=== PATIENT | male | born 2000 | race African-American/Black ===

== ENCOUNTER 2023-01-08 16:42 | Observation (INO) | payer MEDICAID, OTHER ==
[~2023-01-08] VITALS: Ht 190.5 cm; Wt 113.6 kg
[2023-01-08 17:30] VITALS: BP 157/76
[2023-01-08] MEDS ORDERED: MELATONIN 3 MG TABLET PO PRN (17:30)
[2023-01-08] MEDS ORDERED: CALCIUM CARBONATE 500 MG CHEW TABLET PO PRN (17:30)
[2023-01-08] MEDS ORDERED: diphenhydrAMINE 25 MG TABLET PO PRN (17:30)
[2023-01-08] MEDS ORDERED: oxyCODONE IMMEDIATE RELEASE 5 MG TABLET PO PRN (17:30)
[2023-01-08] MEDS ORDERED: polyethylene glycoL POWDER 17 GM (MIRALAX) PACK PO PRN (17:30)
[2023-01-08] MEDS ORDERED: MILK OF MAGNESIA 400 MG/5 ML 30 ML UDC PO PRN (17:30)
[2023-01-08] MEDS ORDERED: HYDROmorphone INJECTION 2 MG/ML VIAL IV PRN (17:30)
[2023-01-08] MEDS ORDERED: diphenhydrAMINE INJ 50 MG/ML VIAL IVP PRN (17:30)
[2023-01-08] MEDS ORDERED: LACTULOSE SYRUP 10GM/15ML 30ML UDC PO PRN (17:30)
[2023-01-08] MEDS ORDERED: BISACODYL 10 MG SUPPOSITORY PR PRN (17:30)
[2023-01-08] MEDS ORDERED: NS IV 1000 ML 1,000 ML IV SCH (17:30)
[2023-01-08] MEDS ORDERED: ONDANSETRON 4 MG/2 ML (SDV) Z0FRAN IV PRN (17:30)
[2023-01-08] MEDS ORDERED: ONDANSETRON 4 MG (ZOFRAN) ORAL DISSOLVE TAB PO PRN (17:30)
[2023-01-08] MEDS ORDERED: ANTACID SUSPENSION 30 ML UDC PO PRN (17:30)
[2023-01-08] MEDS ORDERED: ACETAMINOPHEN 325 MG TABLET PO PRN (17:30)
[2023-01-08 17:55] LABS: BASOPHILS % (AUTO) 1 % (0-10); EOSINOPHILS # (AUTO) 0.1 10^3/uL (0.0-0.3); EOSINOPHILS % (AUTO) 1 % (0-10); HEMATOCRIT 42 % (40-54); HEMOGLOBIN 14.3 g/dL (13.3-17.7); LYMPHOCYTES # (AUTO) 1.7 10^3/uL (1.0-4.0); LYMPHOCYTES % (AUTO) 31 % (12-44); MEAN CORPUSCULAR HEMOGLOBIN 31 pg (25-34); MEAN CORPUSCULAR HGB CONC 34 g/dL (32-36); MEAN CORPUSCULAR VOLUME 91 fL (80-99); MEAN PLATELET VOLUME 8.9 fL (9.0-12.2); MONOCYTES # (AUTO) 0.5 10^3/uL (0.0-1.0); MONOCYTES % (AUTO) 8 % (0-12); NEUTROPHILS # (AUTO) 3.3 10^3/uL (1.8-7.8); NEUTROPHILS % (AUTO) 59 % (42-75); PLATELET COUNT 198 10^3/uL (130-400); WHITE BLOOD COUNT 5.6 10^3/uL (4.3-11.0)
--- NOTE | 2023-01-08 18:04 | History & Physical ---
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 Apparently he has been practicing with the football team and suffered muscle cramps nausea and vomiting and has been managed the last 2 days with periodic IV fluid at the [facility]. Currently he is feeling much better but his CPK had been rising the last 2 days. Due to high risk for acute kidney injury and chronic kidney disease we will continue with aggressive IV fluid resuscitation and monitor CPK and kidney function. Source: patient, RN/MD, old records Exam Limitations: no limitations Date Seen 01/08/23 Time Seen by a Provider: 19:00 Attending Physician Ctr,[facility] PCP Admitting Physician: Rylee Cotton DO Attending Physician: Rylee Cotton DO Referring Physician Date of Admission Jan 08, 2023 at 17:12 Home Medications & Allergies Home Medications Reviewed patient Home Medication Reconciliation performed by pharmacy medication reconciliations elevator service technician and/or nursing. Patients Allergies have been reviewed. Allergies Allergies Coded Allergies No Known Drug Allergies (Unverified01/08/23) Past Qxinaah-Ixhvxs-Xqptia Hx Past Med/Social Hx: Reviewed Nursing Past Med/Soc Hx, Reviewed and Corrections made Patient Social History Marrital Status: single Employed/Student: student, full-time Alcohol Use: Denies Use Smoking Status: Former Smoker Recent Foreign Travel: No Contact w/other who traveled: No Review of Systems Constitutional: see HPI, malaise, weakness Musculoskeletal: back pain, muscle pain, muscle stiffness, muscle cramps, muscle twitching, muscle weakness Physical Exam Physical Exam Vital Signs Vital Signs - First Documented 01/08/23 01/08/23 01/08/23 17:30 19:35 19:43 Temp 37.7 Pulse 70 Resp 19 B/P (MAP) 157/76 (103) Pulse Ox 97 O2 Delivery Room Air O2 Flow Rate 0.00 FiO2 21 Capillary Refill : Height, Weight, BMI Height: '" Weight: lbs. oz. kg; 31.30 BMI Method: General Appearance: No Apparent Distress, WD/WN Eyes: Bilateral Eye Normal Inspection, Bilateral Eye PERRL HEENT: PERRL/EOMI, TMs Normal, Normal ENT Inspection, Pharynx Normal Neck: Full Range of Motion, Normal Inspection, Non Tender, Supple, Carotid Bruit Respiratory: Chest Non Tender, Lungs Clear, Normal Breath Sounds, No Accessory Muscle Use, No Respiratory Distress Cardiovascular: Regular Rate, Rhythm, No Edema, No Gallop, No JVD, No Murmur, Normal Peripheral Pulses Gastrointestinal: Normal Bowel Sounds, No Organomegaly, No Pulsatile Mass, Non Tender, Soft Back: Normal Inspection, No CVA Tenderness, No Vertebral Tenderness Extremity: Normal Capillary Refill, Normal Inspection, Normal Range of Motion, Non Tender, No Calf Tenderness, No Pedal Edema Neurologic/Psychiatric: Alert, Oriented x3, No Motor/Sensory Deficits, Normal Mood/Affect Skin: Normal Color, Warm/Dry Lymphatic: No Adenopathy Results Results/Procedures Labs Laboratory Tests 01/08/23 17:45 Patient resulted labs reviewed. Assessment/Plan Admission Diagnosis Assessment: Acute rhabdomyolysis Acute kidney injury Heat exposure Plan: Aggressive IV fluid Monitor CPK Monitor kidney function Admission Status: Observation RYLEE COTTON DO Jan 08, 2023 18:04
[2023-01-08 18:09] LABS: ALBUMIN 4.3 GM/DL (3.2-4.5); POTASSIUM 3.9 MMOL/L (3.6-5.0)
[2023-01-08 18:11] LABS: CALCIUM 8.9 MG/DL (8.5-10.1)
[2023-01-08 18:12] LABS: TOTAL PROTEIN 6.9 GM/DL (6.4-8.2)
[2023-01-08 18:14] LABS: BILIRUBIN,TOTAL 0.5 MG/DL (0.1-1.0)
[2023-01-08 18:16] LABS: CREATININE SERUM 1.29 MG/DL (0.60-1.30)
[2023-01-08] MEDS: NS IV 1000 ML 1,000 ML IV SCH (18:29)
[2023-01-08 18:36] LABS: BACTERIA,URINE TRACE /HPF; BILIRUBIN,URINE NEGATIVE (NEGATIVE); CLARITY,URINE CLEAR; COLOR,URINE YELLOW; GLUCOSE, URINE (UA) NEGATIVE (NEGATIVE); KETONES,URINE NEGATIVE (NEGATIVE); LEUKOCYTE ESTERASE ,URINE NEGATIVE (NEGATIVE); NITRITE,URINE NEGATIVE (NEGATIVE); PROTEIN,URINE NEGATIVE (NEGATIVE)
[2023-01-08 19:21] VITALS: BP 141/70
[2023-01-08] MEDS: DOCUSATE SODIUM 100 MG CAPSULE PO SCH (19:21)
[2023-01-08] MEDS: SENNOSIDES 8.6 MG (SENOKOT) TAB PO SCH (19:22)
[2023-01-08 19:35] VITALS: BP 157/76
[2023-01-09] MEDS: NS IV 1000 ML 1,000 ML IV SCH ×4 (00:25→17:26)
[2023-01-09 00:26] VITALS: BP 139/73
[2023-01-09 03:56] VITALS: BP 105/79
[2023-01-09 05:56] LABS: BASOPHILS % (AUTO) 1 % (0-10); EOSINOPHILS # (AUTO) 0.1 10^3/uL (0.0-0.3); EOSINOPHILS % (AUTO) 2 % (0-10); HEMATOCRIT 45 % (40-54); HEMOGLOBIN 14.8 g/dL (13.3-17.7); LYMPHOCYTES # (AUTO) 2.1 10^3/uL (1.0-4.0); LYMPHOCYTES % (AUTO) 43 % (12-44); MEAN CORPUSCULAR HEMOGLOBIN 31 pg (25-34); MEAN CORPUSCULAR HGB CONC 33 g/dL (32-36); MEAN CORPUSCULAR VOLUME 92 fL (80-99); MEAN PLATELET VOLUME 9.4 fL (9.0-12.2); MONOCYTES # (AUTO) 0.4 10^3/uL (0.0-1.0); MONOCYTES % (AUTO) 8 % (0-12); NEUTROPHILS # (AUTO) 2.3 10^3/uL (1.8-7.8); NEUTROPHILS % (AUTO) 47 % (42-75); PLATELET COUNT 198 10^3/uL (130-400); WHITE BLOOD COUNT 4.9 10^3/uL (4.3-11.0)
[2023-01-09 06:12] LABS: POTASSIUM 4.1 MMOL/L (3.6-5.0)
[2023-01-09 06:13] LABS: CALCIUM 8.7 MG/DL (8.5-10.1)
[2023-01-09 06:14] LABS: TOTAL PROTEIN 6.5 GM/DL (6.4-8.2)
[2023-01-09 06:16] LABS: BILIRUBIN,TOTAL 0.9 MG/DL (0.1-1.0)
[2023-01-09 06:18] LABS: CREATININE SERUM 1.27 MG/DL (0.60-1.30)
[2023-01-09 07:26] VITALS: BP 142/89
[2023-01-09] MEDS: SENNOSIDES 8.6 MG (SENOKOT) TAB PO SCH ×2 (09:19→19:50)
[2023-01-09] MEDS: DOCUSATE SODIUM 100 MG CAPSULE PO SCH ×2 (09:19→19:50)
[2023-01-09] MEDS ORDERED: IBUP-2473 PO (10:15)
[2023-01-09 11:11] VITALS: BP 148/80
--- NOTE | 2023-01-09 11:24 | Progress Note ---
Subjective Date Seen by a Provider: Jan 09, 2023 Time Seen by a Provider: 11:00 Subjective/Events-last exam Patient much improved Minimal pain CPK down from 18-15k IV fluid continues Review of Systems General: Fatigue, Malaise Focused Exam Lactate Level 01/08/23 17:45: Lactic Acid Level 1.20 Objective Exam Last Set of Vital Signs Vital Signs Date Time Temp Pulse Resp B/P (MAP) Pulse Ox O2 Delivery O2 Flow Rate FiO2 01/09/23 11:11 37.1 56 16 148/80 (102) 99 Room Air 01/09/23 07:42 0.00 01/08/23 19:35 21 Capillary Refill : I&O Intake and Output 01/09/23 00:00 Intake Total 400 ml Balance 400 ml Intake Oral 400 ml # Voids 2 Daily Weight Change No General: Alert, Oriented X3, Cooperative, No Acute Distress Lungs: Clear to Auscultation, Normal Air Movement Heart: Regular Rate, Normal S1, Normal S2, No Murmurs Psych/Mental Status: Mental Status NL, Mood NL Results Lab Laboratory Tests 01/08/23 17:45: White Blood Count 5.6, Red Blood Count 4.62, Hemoglobin 14.3, Hematocrit 42, Mean Corpuscular Volume 91, Mean Corpuscular Hemoglobin 31, Mean Corpuscular Hemoglobin Concent 34, Red Cell Distribution Width 11.8, Platelet Count 198, Mean Platelet Volume 8.9L, Immature Granulocyte % (Auto) 0, Neutrophils (%) (Auto) 59, Lymphocytes (%) (Auto) 31, Monocytes (%) (Auto) 8, Eosinophils (%) (Auto) 1, Basophils (%) (Auto) 1, Neutrophils # (Auto) 3.3, Lymphocytes # (Auto) 1.7, Monocytes # (Auto) 0.5, Eosinophils # (Auto) 0.1, Basophils # (Auto) 0.0, Immature Granulocyte # (Auto) 0.0, Sodium Level 138, Potassium Level 3.9, Chloride Level 105, Carbon Dioxide Level 22, Anion Gap 11, Blood Urea Nitrogen 11, Creatinine 1.29, Estimat Glomerular Filtration Rate 81, BUN/Creatinine Ratio 9, Glucose Level 92, Lactic Acid Level 1.20, Calcium Level 8.9, Corrected Calcium 8.7, Total Bilirubin 0.5, Aspartate Amino Transf (AST/SGOT) 333H, Alanine Aminotransferase (ALT/SGPT) 86H, Alkaline Phosphatase 59, Total Creatine Kinase 14396D, Total Protein 6.9, Albumin 4.3 01/08/23 18:10: Urine Color YELLOW, Urine Clarity CLEAR, Urine pH 6.0, Urine Specific [place] 1.010L, Urine Protein NEGATIVE, Urine Glucose (UA) NEGATIVE, Urine Ketones NEGATIVE, Urine Nitrite NEGATIVE, Urine Bilirubin NEGATIVE, Urine Urobilinogen 0.2, Urine Leukocyte Esterase NEGATIVE, Urine RBC (Auto) TRACEH, Urine RBC NONE, Urine WBC NONE, Urine Squamous Epithelial Cells NONE, Urine Crystals NONE, Urine Bacteria TRACE, Urine Casts NONE, Urine Mucus NEGATIVE, Urine Culture Indicated NO 01/09/23 05:09: White Blood Count 4.9, Red Blood Count 4.86, Hemoglobin 14.8, Hematocrit 45, Mean Corpuscular Volume 92, Mean Corpuscular Hemoglobin 31, Mean Corpuscular Hemoglobin Concent 33, Red Cell Distribution Width 11.6, Platelet Count 198, Mean Platelet Volume 9.4, Immature Granulocyte % (Auto) 0, Neutrophils (%) (Auto) 47, Lymphocytes (%) (Auto) 43, Monocytes (%) (Auto) 8, Eosinophils (%) (Auto) 2, Basophils (%) (Auto) 1, Neutrophils # (Auto) 2.3, Lymphocytes # (Auto) 2.1, Monocytes # (Auto) 0.4, Eosinophils # (Auto) 0.1, Basophils # (Auto) 0.0, Immature Granulocyte # (Auto) 0.0, Sodium Level 141, Potassium Level 4.1, Chloride Level 108H, Carbon Dioxide Level 24, Anion Gap 9, Blood Urea Nitrogen 9, Creatinine 1.27, Estimat Glomerular Filtration Rate 82, BUN/Creatinine Ratio 7, Glucose Level 86, Calcium Level 8.7, Corrected Calcium 8.7, Total Bilirubin 0.9, Aspartate Amino Transf (AST/SGOT) 253H, Alanine Aminotransferase (ALT/SGPT) 80H, Alkaline Phosphatase 54, Total Creatine Kinase 92817Y, Total Protein 6.5, Albumin 4.0 Assessment/Plan Assessment/Plan Assess & Plan/Chief Complaint Assessment: Acute rhabdomyolysis Acute kidney injury Heat exposure Plan: Aggressive IV fluid Monitor CPK Monitor kidney function ALEX ACUNA DO Jan 09, 2023 11:24
[2023-01-09 16:47] VITALS: BP 150/88
[2023-01-09 20:45] VITALS: BP 151/86
[2023-01-10] MEDS: NS IV 1000 ML 1,000 ML IV SCH ×3 (00:03→08:55)
[2023-01-10 00:04] VITALS: BP 133/93
[2023-01-10 03:11] VITALS: BP 144/75
[2023-01-10 05:51] LABS: BASOPHILS % (AUTO) 1 % (0-10); EOSINOPHILS # (AUTO) 0.1 10^3/uL (0.0-0.3); EOSINOPHILS % (AUTO) 1 % (0-10); HEMATOCRIT 44 % (40-54); LYMPHOCYTES # (AUTO) 1.8 10^3/uL (1.0-4.0); LYMPHOCYTES % (AUTO) 34 % (12-44); MEAN CORPUSCULAR HEMOGLOBIN 31 pg (25-34); MEAN CORPUSCULAR HGB CONC 34 g/dL (32-36); MEAN CORPUSCULAR VOLUME 90 fL (80-99); MONOCYTES # (AUTO) 0.4 10^3/uL (0.0-1.0); MONOCYTES % (AUTO) 8 % (0-12); NEUTROPHILS % (AUTO) 56 % (42-75); PLATELET COUNT 200 10^3/uL (130-400); WHITE BLOOD COUNT 5.3 10^3/uL (4.3-11.0)
[2023-01-10 06:19] LABS: ALBUMIN 4.2 GM/DL (3.2-4.5); BILIRUBIN,TOTAL 0.9 MG/DL (0.1-1.0); CALCIUM 9.2 MG/DL (8.5-10.1); CREATININE SERUM 1.22 MG/DL (0.60-1.30); POTASSIUM 4.2 MMOL/L (3.6-5.0); TOTAL PROTEIN 6.7 GM/DL (6.4-8.2)
--- NOTE | 2023-01-10 06:32 | Progress Note ---
Subjective Date Seen by a Provider: Jan 10, 2023 Time Seen by a Provider: 11:00 Focused Exam Lactate Level 01/08/23 17:45: Lactic Acid Level 1.20 Objective Exam Last Set of Vital Signs Vital Signs Date Time Temp Pulse Resp B/P (MAP) Pulse Ox O2 Delivery O2 Flow Rate FiO2 01/10/23 03:11 57 16 144/75 (98) 97 01/10/23 00:04 Room Air 01/09/23 20:45 37.0 01/09/23 19:45 0.00 01/08/23 19:35 21 Capillary Refill : I&O Intake and Output 01/10/23 00:00 Intake Total 3220 ml Balance 3220 ml Intake Oral 2220 ml IV Total 1000 ml # Voids 20 # Bowel Movements 3 Results Lab Laboratory Tests 01/10/23 05:34: White Blood Count 5.3, Red Blood Count 4.92, Hemoglobin 15.0, Hematocrit 44, Mean Corpuscular Volume 90, Mean Corpuscular Hemoglobin 31, Mean Corpuscular Hemoglobin Concent 34, Red Cell Distribution Width 11.6, Platelet Count 200, Mean Platelet Volume 9.0, Immature Granulocyte % (Auto) 0, Neutrophils (%) (Auto) 56, Lymphocytes (%) (Auto) 34, Monocytes (%) (Auto) 8, Eosinophils (%) (Auto) 1, Basophils (%) (Auto) 1, Neutrophils # (Auto) 3.0, Lymphocytes # (Auto) 1.8, Monocytes # (Auto) 0.4, Eosinophils # (Auto) 0.1, Basophils # (Auto) 0.0, Immature Granulocyte # (Auto) 0.0, Sodium Level 142, Potassium Level 4.2, Chloride Level 107, Carbon Dioxide Level 25, Anion Gap 10, Blood Urea Nitrogen 8, Creatinine 1.22, Estimat Glomerular Filtration Rate 87, BUN/Creatinine Ratio 7, Glucose Level 91, Calcium Level 9.2, Corrected Calcium 9.0, Total Bilirubin 0.9, Aspartate Amino Transf (AST/SGOT) 162H, Alanine Aminotransferase (ALT/SGPT) 72H, Alkaline Phosphatase 59, Total Protein 6.7, Albumin 4.2 Assessment/Plan Assessment/Plan Assess & Plan/Chief Complaint Assessment: Acute rhabdomyolysis Acute kidney injury Heat exposure Plan: Aggressive IV fluid Monitor CPK Monitor kidney function ALEX ACUNA DO Jan 10, 2023 06:32
[2023-01-10 07:16] VITALS: BP 158/89
[2023-01-10] MEDS: SENNOSIDES 8.6 MG (SENOKOT) TAB PO SCH (08:54)
[2023-01-10] MEDS: DOCUSATE SODIUM 100 MG CAPSULE PO SCH (08:54)
--- NOTE | 2023-01-10 11:44 | Discharge Summary ---
Diagnosis/Chief Complaint Date of Admission Jan 08, 2023 at 17:12 Date of Discharge Discharge Date: Jan 10, 2023 Discharge Diagnosis Acute rhabdomyolysis Acute kidney injury Heat exposure Discharge Summary Discharge Physical Examination Allergies: Coded Allergies: No Known Drug Allergies (Unverified , 01/08/23) Vitals & I&Os Vital Signs Date Time Temp Pulse Resp B/P (MAP) Pulse Ox O2 Delivery O2 Flow Rate FiO2 01/10/23 12:44 37.0 52 18 147/84 100 Room Air 0.00 01/08/23 19:35 21 General Appearance: Alert, Oriented X3, Cooperative Respiratory: Clear to Auscultation Cardiovascular: Regular Rate Psych/Mental Status: Mental Status NL Hospital Course Was the Problem List Reviewed?: Yes Short hospital course after he was admitted from [facility] after failing 2 days of IV fluid given at the clinic for acute rhabdomyolysis with acute kidney injury and heat exposure. Overall he did well CPK was 18,000 then 15,000 and then today was 9000 with no evidence of any kidney injury he was going to increase his fluid intake and he was deemed stable for DC with close f/u Thursday at [facility] clinic to decide when he could return to football. Labs (last 24 hrs) Laboratory Tests 01/08/23 17:45: White Blood Count 5.6, Red Blood Count 4.62, Hemoglobin 14.3, Hematocrit 42, Mean Corpuscular Volume 91, Mean Corpuscular Hemoglobin 31, Mean Corpuscular Hemoglobin Concent 34, Red Cell Distribution Width 11.8, Platelet Count 198, Mean Platelet Volume 8.9L, Immature Granulocyte % (Auto) 0, Neutrophils (%) (Auto) 59, Lymphocytes (%) (Auto) 31, Monocytes (%) (Auto) 8, Eosinophils (%) (Auto) 1, Basophils (%) (Auto) 1, Neutrophils # (Auto) 3.3, Lymphocytes # (Auto) 1.7, Monocytes # (Auto) 0.5, Eosinophils # (Auto) 0.1, Basophils # (Auto) 0.0, Immature Granulocyte # (Auto) 0.0, Sodium Level 138, Potassium Level 3.9, Chloride Level 105, Carbon Dioxide Level 22, Anion Gap 11, Blood Urea Nitrogen 11, Creatinine 1.29, Estimat Glomerular Filtration Rate 81, BUN/Creatinine Ratio 9, Glucose Level 92, Lactic Acid Level 1.20, Calcium Level 8.9, Corrected Calcium 8.7, Total Bilirubin 0.5, Aspartate Amino Transf (AST/SGOT) 333H, Alanine Aminotransferase (ALT/SGPT) 86H, Alkaline Phosphatase 59, Total Creatine Kinase 56879D, Total Protein 6.9, Albumin 4.3 01/08/23 18:10: Urine Color YELLOW, Urine Clarity CLEAR, Urine pH 6.0, Urine Specific [place] 1 .010L, Urine Protein NEGATIVE, Urine Glucose (UA) NEGATIVE, Urine Ketones NEGATIVE, Urine Nitrite NEGATIVE, Urine Bilirubin NEGATIVE, Urine Urobilinogen 0.2, Urine Leukocyte Esterase NEGATIVE, Urine RBC (Auto) TRACEH, Urine RBC NONE, Urine WBC NONE, Urine Squamous Epithelial Cells NONE, Urine Crystals NONE, Urine Bacteria TRACE, Urine Casts NONE, Urine Mucus NEGATIVE, Urine Culture Indicated NO 01/09/23 05:09: White Blood Count 4.9, Red Blood Count 4.86, Hemoglobin 14.8, Hematocrit 45, Mean Corpuscular Volume 92, Mean Corpuscular Hemoglobin 31, Mean Corpuscular Hemoglobin Concent 33, Red Cell Distribution Width 11.6, Platelet Count 198, Mean Platelet Volume 9.4, Immature Granulocyte % (Auto) 0, Neutrophils (%) (Auto) 47, Lymphocytes (%) (Auto) 43, Monocytes (%) (Auto) 8, Eosinophils (%) (Auto) 2, Basophils (%) (Auto) 1, Neutrophils # (Auto) 2.3, Lymphocytes # (Auto) 2.1, Monocytes # (Auto) 0.4, Eosinophils # (Auto) 0.1, Basophils # (Auto) 0.0, Immature Granulocyte # (Auto) 0.0, Sodium Level 141, Potassium Level 4.1, Chloride Level 108H, Carbon Dioxide Level 24, Anion Gap 9, Blood Urea Nitrogen 9, Creatinine 1.27, Estimat Glomerular Filtration Rate 82, BUN/Creatinine Ratio 7, Glucose Level 86, Calcium Level 8.7, Corrected Calcium 8.7, Total Bilirubin 0.9, Aspartate Amino Transf (AST/SGOT) 253H, Alanine Aminotransferase (ALT/SGPT) 80H, Alkaline Phosphatase 54, Total Creatine Kinase 97305F, Total Protein 6.5, Albumin 4.0 01/10/23 05:34: White Blood Count 5.3, Red Blood Count 4.92, Hemoglobin 15.0, Hematocrit 44, Mean Corpuscular Volume 90, Mean Corpuscular Hemoglobin 31, Mean Corpuscular Hemoglobin Concent 34, Red Cell Distribution Width 11.6, Platelet Count 200, Mean Platelet Volume 9.0, Immature Granulocyte % (Auto) 0, Neutrophils (%) (Auto) 56, Lymphocytes (%) (Auto) 34, Monocytes (%) (Auto) 8, Eosinophils (%) (Auto) 1, Basophils (%) (Auto) 1, Neutrophils # (Auto) 3.0, Lymphocytes # (Auto) 1.8, Monocytes # (Auto) 0.4, Eosinophils # (Auto) 0.1, Basophils # (Auto) 0.0, Immature Granulocyte # (Auto) 0.0, Sodium Level 142, Potassium Level 4.2, Chloride Level 107, Carbon Dioxide Level 25, Anion Gap 10, Blood Urea Nitrogen 8, Creatinine 1.22, Estimat Glomerular Filtration Rate 87, BUN/Creatinine Ratio 7, Glucose Level 91, Calcium Level 9.2, Corrected Calcium 9.0, Total Bilirubin 0.9, Aspartate Amino Transf (AST/SGOT) 162H, Alanine Aminotransferase (ALT/SGPT) 72H, Alkaline Phosphatase 59, Total Creatine Kinase 9647H, Total Protein 6.7, Albumin 4.2 Pending Labs Laboratory Tests 01/08/23 17:45: White Blood Count 5.6, Red Blood Count 4.62, Hemoglobin 14.3, Hematocrit 42, Mean Corpuscular Volume 91, Mean Corpuscular Hemoglobin 31, Mean Corpuscular Hemoglobin Concent 34, Red Cell Distribution Width 11.8, Platelet Count 198, Mean Platelet Volume 8.9, Immature Granulocyte % (Auto) 0, Neutrophils (%) (Auto) 59, Lymphocytes (%) (Auto) 31, Monocytes (%) (Auto) 8, Eosinophils (%) (Auto) 1, Basophils (%) (Auto) 1, Neutrophils # (Auto) 3.3, Lymphocytes # (Auto) 1.7, Monocytes # (Auto) 0.5, Eosinophils # (Auto) 0.1, Basophils # (Auto) 0.0, Immature Granulocyte # (Auto) 0.0, Sodium Level 138, Potassium Level 3.9, Chloride Level 105, Carbon Dioxide Level 22, Anion Gap 11, Blood Urea Nitrogen 11, Creatinine 1.29, Estimat Glomerular Filtration Rate 81, BUN/Creatinine Ratio 9, Glucose Level 92, Lactic Acid Level 1.20, Calcium Level 8.9, Corrected Calcium 8.7, Total Bilirubin 0.5, Aspartate Amino Transf (AST/SGOT) 333, Alanine Aminotransferase (ALT/SGPT) 86, Alkaline Phosphatase 59, Total Creatine Kinase 70043, Total Protein 6.9, Albumin 4.3 01/08/23 18:10: Urine Color YELLOW, Urine Clarity CLEAR, Urine pH 6.0, Urine Specific [place] 1.010, Urine Protein NEGATIVE, Urine Glucose (UA) NEGATIVE, Urine Ketones NEGATIVE, Urine Nitrite NEGATIVE, Urine Bilirubin NEGATIVE, Urine Urobilinogen 0.2, Urine Leukocyte Esterase NEGATIVE, Urine RBC (Auto) TRACE, Urine RBC NONE, Urine WBC NONE, Urine Squamous Epithelial Cells NONE, Urine Crystals NONE, Urine Bacteria TRACE, Urine Casts NONE, Urine Mucus NEGATIVE, Urine Culture Indicated NO 01/09/23 05:09: White Blood Count 4.9, Red Blood Count 4.86, Hemoglobin 14.8, Hematocrit 45, Mean Corpuscular Volume 92, Mean Corpuscular Hemoglobin 31, Mean Corpuscular Hemoglobin Concent 33, Red Cell Distribution Width 11.6, Platelet Count 198, Mean Platelet Volume 9.4, Immature Granulocyte % (Auto) 0, Neutrophils (%) (Auto) 47, Lymphocytes (%) (Auto) 43, Monocytes (%) (Auto) 8, Eosinophils (%) (Auto) 2, Basophils (%) (Auto) 1, Neutrophils # (Auto) 2.3, Lymphocytes # (Auto) 2.1, Monocytes # (Auto) 0.4, Eosinophils # (Auto) 0.1, Basophils # (Auto) 0.0, Immature Granulocyte # (Auto) 0.0, Sodium Level 141, Potassium Level 4.1, Chloride Level 108, Carbon Dioxide Level 24, Anion Gap 9, Blood Urea Nitrogen 9, Creatinine 1.27, Estimat Glomerular Filtration Rate 82, BUN/Creatinine Ratio 7, Glucose Level 86, Calcium Level 8.7, Corrected Calcium 8.7, Total Bilirubin 0.9, Aspartate Amino Transf (AST/SGOT) 253, Alanine Aminotransferase (ALT/SGPT) 80, Alkaline Phosphatase 54, Total Creatine Kinase 84865, Total Protein 6.5, Albumin 4.0 01/10/23 05:34: White Blood Count 5.3, Red Blood Count 4.92, Hemoglobin 15.0, Hematocrit 44, Mean Corpuscular Volume 90, Mean Corpuscular Hemoglobin 31, Mean Corpuscular Hemoglobin Concent 34, Red Cell Distribution Width 11.6, Platelet Count 200, Mean Platelet Volume 9.0, Immature Granulocyte % (Auto) 0, Neutrophils (%) (Auto) 56, Lymphocytes (%) (Auto) 34, Monocytes (%) (Auto) 8, Eosinophils (%) (Auto) 1, Basophils (%) (Auto) 1, Neutrophils # (Auto) 3.0, Lymphocytes # (Auto) 1.8, Monocytes # (Auto) 0.4, Eosinophils # (Auto) 0.1, Basophils # (Auto) 0.0, Immature Granulocyte # (Auto) 0.0, Sodium Level 142, Potassium Level 4.2, Chloride Level 107, Carbon Dioxide Level 25, Anion Gap 10, Blood Urea Nitrogen 8, Creatinine 1.22, Estimat Glomerular Filtration Rate 87, BUN/Creatinine Ratio 7, Glucose Level 91, Calcium Level 9.2, Corrected Calcium 9.0, Total Bilirubin 0.9, Aspartate Amino Transf (AST/SGOT) 162, Alanine Aminotransferase (ALT/SGPT) 72, Alkaline Phosphatase 59, Total Creatine Kinase 9647, Total Protein 6.7, Albumin 4.2 Discharge Home Medications: Active Scripts Active No Active Prescriptions or Reported Medications Instructions to patient/family Please see electronic discharge instructions given to patient. ALEX ACUNA DO Jan 10, 2023 11:44
[2023-01-10 12:32] VITALS: BP 147/84
[2023-01-10 12:44] VITALS: BP 147/84
== END 2023-01-10 12:44 | disposition home or self-care (01) ==
LOC: 4TH 17:12
PROVIDERS: ADMIT Internal Medicine; ATTEND Internal Medicine
DX: M62.82 Rhabdomyolysis (principal); N17.9 Acute kidney failure, unspecified; X30.XXXA Exposure to excessive natural heat, initial encounter
CPT/HCPCS: 36415; 80053; 81000; 82550; 83605; 85025; 94760; 96361; G0378

== ENCOUNTER → 2023-01-08 | Outpatient (CLI) ==
[~2023-01-08] MED LIST: IBUP-2473 PO
[2023-01-08 14:39] LABS: ALBUMIN 4.7 GM/DL (3.2-4.5); CHLORIDE 105 MMOL/L (98-107); POTASSIUM 4.2 MMOL/L (3.6-5.0); SODIUM 140 MMOL/L (135-145)
[2023-01-08 14:40] LABS: CALCIUM 9.4 MG/DL (8.5-10.1)
[2023-01-08 14:41] LABS: GLUCOSE 76 MG/DL (70-105)
[2023-01-08 14:42] LABS: TOTAL PROTEIN 7.4 GM/DL (6.4-8.2)
[2023-01-08 14:43] LABS: BILIRUBIN,TOTAL 0.5 MG/DL (0.1-1.0); CARBON DIOXIDE 26 MMOL/L (21-32)
[2023-01-08 14:45] LABS: ALKALINE PHOSPHATASE 68 U/L (40-136); CREATININE SERUM 1.34 MG/DL (0.60-1.30); GFR ESTIMATED 77
[2023-01-08 14:46] LABS: BUN/CREATININE RATIO 7
[2023-01-08 14:48] LABS: ALANINE AMINOTRANSFERASE 88 U/L (0-55)
[2023-01-08 15:17] LABS: CREATINE KINASE 17118 U/L (30-200)
== END ==
LOC: LABNPT 14:29
PROVIDERS: ATTEND Nurse Practitioner Family
DX: M62.82 Rhabdomyolysis (principal); N17.9 Acute kidney failure, unspecified
CPT/HCPCS: 80053; 82550

== ENCOUNTER → 2023-01-12 | Outpatient (CLI) | payer MEDICAID | LOC: LABNPT 14:49 | DX: E86.0 Dehydration (principal) ==